=== PATIENT | female | born 1960 | race Caucasian/White ===

== ENCOUNTER 2023-10-16 11:01 | Outpatient (RCR) | payer BC, SELFPAY | END 2023-10-16 23:59 | disposition home or self-care (01) | LOC: RPT 11:01 | PROVIDERS: ATTENDING PHYSICIAN Physician Assistant Surgical; FAMILY PHYSICIAN Family Medicine | DX: M17.11 Unilateral primary osteoarthritis, right knee (principal); M76.891 Other specified enthesopathies of right lower limb, excluding foot; M70.50 Other bursitis of knee, unspecified knee; S83.241D Other tear of medial meniscus, current injury, right knee, subsequent encounter; M71.21 Synovial cyst of popliteal space [Baker], right knee; Z73.6 Limitation of activities due to disability | CPT/HCPCS: 97010; 97110; 97140; 97530 ==

== ENCOUNTER 2023-11-05 11:15 | Outpatient (RCR) | payer BC, SELFPAY | END 2023-11-05 23:59 | disposition home or self-care (01) | LOC: RPT 11:15 | PROVIDERS: ATTENDING PHYSICIAN Physician Assistant Surgical; FAMILY PHYSICIAN Family Medicine | DX: M17.11 Unilateral primary osteoarthritis, right knee (principal); M76.891 Other specified enthesopathies of right lower limb, excluding foot; M70.50 Other bursitis of knee, unspecified knee; S83.241D Other tear of medial meniscus, current injury, right knee, subsequent encounter; M71.21 Synovial cyst of popliteal space [Baker], right knee; Z73.6 Limitation of activities due to disability; R26.89 Other abnormalities of gait and mobility | CPT/HCPCS: 97010; 97110; 97140 ==

== ENCOUNTER → 2023-12-09 06:43 | Outpatient (REF) | payer BC, SELFPAY | LOC: WDC 06:43 | PROVIDERS: ATTENDING PHYSICIAN Obstetrics & Gynecology Gynecology; FAMILY PHYSICIAN Family Medicine | DX: Z12.31 Encounter for screening mammogram for malignant neoplasm of breast (principal) | CPT/HCPCS: 77063; 77067 ==

== ENCOUNTER → 2024-03-25 13:50 | Outpatient (REF) | payer BC, SELFPAY | LOC: RCS 13:50 | PROVIDERS: ATTENDING PHYSICIAN Internal Medicine Cardiovascular Disease; FAMILY PHYSICIAN Family Medicine | DX: I34.0 Nonrheumatic mitral (valve) insufficiency (principal) | CPT/HCPCS: 93306 ==

== ENCOUNTER → 2024-05-27 06:19 | Outpatient (REF) | payer BC, SELFPAY ==
[2024-05-27 07:52] LABS: % Basophils 0.2 % (0-2); % Eosinophils 1.4 % (0-6); % Immature Granulocytes 0.2 % (0-0.5); % Monocytes 7.7 % (1.7-9.3); % Neutrophils 41.5 % (42.2-75.2); Absolute Eosinophils 0.1 10^3/uL (0-0.7); Absolute Lymphocytes 2.4 10^3/uL (1.2-3.4); Absolute Monocytes 0.4 10^3/uL (0.1-0.6); Hematocrit 39.1 % (37.0-47.0); Hemoglobin 13.5 g/dL (12.0-16.0); Mean Corp Hgb Conc. 34.5 g/dL (33.0-37.0); Mean Corpuscular Hgb 31.8 pg (27.0-31.0); Mean Platelet Volume 10.3 fL (7.4-10.4); Nucleated Red Blood Cells % 0 %; Platelet Count 206 10^3/uL (130-400); Red Blood Cell Count 4.25 10^6/uL (4.20-5.40); Red Cell Dist. Width 12.7 % (11.5-14.5); White Blood Cell Count 4.9 10^3/uL (4.8-10.8)
[2024-05-27 08:22] LABS: ALT (SGPT) 25 U/L (0-35); AST (SGOT) 30 U/L (14-36); Albumin 4.4 g/dl (3.5-5.0); Alkaline Phosphatase 71 U/L (38-126); Blood Urea Nitrogen 14 mg/dl (7-17); Calcium 9.9 mg/dl (8.4-10.2); Carbon Dioxide 25 mmol/L (22-30); Chloride 107 mmol/L (98-107); Glucose 90 mg/dl (70-99); HDL Cholesterol 98 mg/dl; LDL Cholesterol, Calculated 115 mg/dl; Potassium 4.1 mmol/L (3.5-5.1); Sodium 138 mmol/L (135-145); Total Bilirubin 0.8 mg/dl (0.2-1.3); Total Cholesterol 228 mg/dl (50-199); Total Protein 6.8 g/dl (6.3-8.2); Triglyceride 76 mg/dl (10-149); Very Low Density Lipoprotein 15 mg/dl (0-30); eGFR > 60.00
[2024-05-27 08:30] LABS: Glycohemoglobin (HgbA1c) 5.4 % (4.0-5.6)
[2024-05-27 08:49] LABS: Vitamin D, 25-OH*** 42.3 ng/mL (30-80)
[2024-05-27 09:02] LABS: TSH 3.12 uIU/ml (0.47-4.68)
== END ==
LOC: REG 06:19
PROVIDERS: ATTENDING PHYSICIAN Family Medicine
DX: R73.03 Prediabetes (principal); M85.89 Other specified disorders of bone density and structure, multiple sites; E55.9 Vitamin D deficiency, unspecified; E06.3 Autoimmune thyroiditis; E03.8 Other specified hypothyroidism
CPT/HCPCS: 36415; 80053; 80061; 82306; 83036; 84443; 85025

== ENCOUNTER 2024-08-06 06:39 | Day surgery (SDC) | payer BC, SELFPAY ==
[2024-08-06] VITALS (7 sets, daily range): BP systolic 118–147; BP diastolic 57–89; BMI 34.1; BMI 34.9
[2024-08-06] MEDS: TRANSDERM-SCOP 1 PATCH TRANSDERM (08:01)
[2024-08-06] MEDS: TYLENOL 1000 MG PO (08:01)
[2024-08-06] MEDS: CELEBREX 200 MG PO (08:01)
[2024-08-06 08:11] LABS: Hematocrit 36.7 % (37.0-47.0); Hemoglobin 12.2 g/dL (12.0-16.0); Mean Corp Hgb Conc. 33.2 g/dL (33.0-37.0); Mean Corpuscular Hgb 30.2 pg (27.0-31.0); Mean Corpuscular Volume 90.8 fL (81.0-99.0); Mean Platelet Volume 9.8 fL (7.4-10.4); Platelet Count 200 10^3/uL (130-400); Red Blood Cell Count 4.04 10^6/uL (4.20-5.40); Red Cell Dist. Width 12.5 % (11.5-14.5); White Blood Cell Count 4.9 10^3/uL (4.8-10.8)
== END 2024-08-06 12:20 | disposition home or self-care (01) ==
LOC: SDS 06:39
PROVIDERS: ATTENDING PHYSICIAN Specialist; FAMILY PHYSICIAN Family Medicine
DX: X58.XXXA Exposure to other specified factors, initial encounter (principal); M17.11 Unilateral primary osteoarthritis, right knee; M25.761 Osteophyte, right knee; M22.41 Chondromalacia patellae, right knee
CPT/HCPCS: 29881; 85027

== ENCOUNTER → 2024-12-14 06:44 | Outpatient (REF) | payer BC, SELFPAY | LOC: WDC 06:44 | PROVIDERS: ATTENDING PHYSICIAN Obstetrics & Gynecology Gynecology; FAMILY PHYSICIAN Family Medicine | DX: Z12.31 Encounter for screening mammogram for malignant neoplasm of breast (principal) | CPT/HCPCS: 77063; 77067 ==

== ENCOUNTER → 2025-01-26 08:53 | Outpatient (REF) | payer BC, SELFPAY | LOC: RAD 08:53 | PROVIDERS: ATTENDING PHYSICIAN Obstetrics & Gynecology Gynecology; FAMILY PHYSICIAN Family Medicine | DX: Z78.0 Asymptomatic menopausal state (principal) | CPT/HCPCS: 77080 ==

== ENCOUNTER → 2025-03-01 06:33 | Outpatient (REF) | payer BC, SELFPAY ==
[2025-03-01 07:58] LABS: % Basophils 0.2 % (0-2); % Eosinophils 4.7 % (0-6); % Lymphocytes 44.8 % (20.5-51.1); % Monocytes 8.2 % (1.7-9.3); % Neutrophils 42.1 % (42.2-75.2); Absolute Eosinophils 0.2 10^3/uL (0-0.7); Absolute Lymphocytes 2.1 10^3/uL (1.2-3.4); Absolute Monocytes 0.4 10^3/uL (0.1-0.6); Hematocrit 37.3 % (37.0-47.0); Hemoglobin 12.3 g/dL (12.0-16.0); Mean Corpuscular Hgb 30.1 pg (27.0-31.0); Mean Corpuscular Volume 91.2 fL (81.0-99.0); Mean Platelet Volume 10.4 fL (7.4-10.4); Nucleated Red Blood Cells % 0 %; Platelet Count 217 10^3/uL (130-400); Red Blood Cell Count 4.09 10^6/uL (4.20-5.40); Red Cell Dist. Width 12.6 % (11.5-14.5); White Blood Cell Count 4.7 10^3/uL (4.8-10.8)
[2025-03-01 08:16] LABS: ALT (SGPT) 24 U/L (0-35); AST (SGOT) 30 U/L (14-36); Albumin 4.4 g/dl (3.5-5.0); Alkaline Phosphatase 75 U/L (38-126); Blood Urea Nitrogen 13 mg/dl (7-17); Calcium 9.5 mg/dl (8.4-10.2); Carbon Dioxide 25 mmol/L (22-30); Chloride 113 mmol/L (98-107); Glucose 101 mg/dl (70-99); HDL Cholesterol 78 mg/dl; LDL Cholesterol, Calculated 107 mg/dl; Potassium 4.1 mmol/L (3.5-5.1); Sodium 142 mmol/L (135-145); Total Bilirubin 0.6 mg/dl (0.2-1.3); Total Cholesterol 205 mg/dl (50-199); Total Protein 6.9 g/dl (6.3-8.2); Triglyceride 103 mg/dl (10-149); Very Low Density Lipoprotein 20 mg/dl (0-30); eGFR > 60.00
[2025-03-01 08:40] LABS: TSH 3.08 uIU/ml (0.47-4.68)
[2025-03-01 08:49] LABS: Glycohemoglobin (HgbA1c) 5.3 % (4.0-5.6)
== END ==
LOC: REG 06:33
PROVIDERS: ATTENDING PHYSICIAN Family Medicine; OTHER PHYSICIAN Internal Medicine Cardiovascular Disease
DX: R73.03 Prediabetes (principal); E06.3 Autoimmune thyroiditis; E78.2 Mixed hyperlipidemia; Z00.00 Encounter for general adult medical examination without abnormal findings
CPT/HCPCS: 36415; 80053; 80061; 83036; 84443; 85025

== ENCOUNTER → 2025-05-24 10:14 | Outpatient (REF) | payer BC, SELFPAY | LOC: RCS 10:14 | PROVIDERS: ATTENDING PHYSICIAN Internal Medicine Cardiovascular Disease; FAMILY PHYSICIAN Family Medicine | DX: I35.1 Nonrheumatic aortic (valve) insufficiency (principal) | CPT/HCPCS: 93306 ==

== ENCOUNTER 2025-09-07 11:44 | Outpatient (RCR) | payer BC, SELFPAY | END 2025-09-07 23:59 | disposition home or self-care (01) | LOC: RPT 11:44 | PROVIDERS: ATTENDING PHYSICIAN Obstetrics & Gynecology Gynecology; FAMILY PHYSICIAN Family Medicine | DX: N81.10 Cystocele, unspecified (principal); M62.89 Other specified disorders of muscle; N39.3 Stress incontinence (female) (male); Z73.6 Limitation of activities due to disability | CPT/HCPCS: 97014; 97112; 97162; 97530 ==

== ENCOUNTER 2025-09-22 13:20 | Outpatient (RCR) | payer BC, SELFPAY | END 2025-09-22 23:59 | disposition home or self-care (01) | LOC: RPT 13:20 | PROVIDERS: ATTENDING PHYSICIAN Obstetrics & Gynecology Gynecology; FAMILY PHYSICIAN Family Medicine | DX: N81.10 Cystocele, unspecified (principal); M62.89 Other specified disorders of muscle; N39.3 Stress incontinence (female) (male); Z73.6 Limitation of activities due to disability | CPT/HCPCS: 97014; 97110; 97112; 97530 ==